=== PATIENT | female | born 1950 | race Caucasian/White ===

== ENCOUNTER 2022-05-06 07:52 | Day surgery (SDC) | payer MEDICARE ==
[~2022-05-06 07:52] MED LIST: Propofol 200 MG/20 ML SDV ONE; fentaNYL 50 MCG/ML SDV ONE
[2022-05-06] MEDS ORDERED: Lactated Ringers 1,000 ML IV SCH (08:30)
== END 2022-05-06 11:05 | disposition home or self-care (01) ==
LOC: JP.SDS 07:52
PROVIDERS: ATTEND Family Medicine
DX: Z12.11 Encounter for screening for malignant neoplasm of colon (principal); I48.91 Unspecified atrial fibrillation; Z87.820 Personal history of traumatic brain injury; R56.9 Unspecified convulsions; Z79.899 Other long term (current) drug therapy
CPT/HCPCS: G0121; J2704; J3010; J7120

== ENCOUNTER 2022-05-11 14:09 | Emergency (ER) | payer MEDICARE ==
[2022-05-11] MEDS ORDERED: fentaNYL 100 MCG/2 ML SDV IM ONE (14:31)
== END 2022-05-11 15:44 | disposition home or self-care (01) ==
LOC: JP.ED 14:09
DX: S52.125A Nondisplaced fracture of head of left radius, initial encounter for closed fracture (principal); W00.0XXA Fall on same level due to ice and snow, initial encounter
CPT/HCPCS: 29125; 73110; 96372; 99283; J3010

== ENCOUNTER 2022-05-19 05:42 | Day surgery (SDC) | payer MEDICARE ==
[2022-05-19] MEDS ORDERED: Sodium Chloride 0.9% 1,000 ML IV SCH (06:30)
[2022-05-19 06:33] LABS: ESTIMATED GFR 68 mL/min (>60)
[2022-05-19] MEDS ORDERED: Bupivacaine 0.5% 30 ML SDV ONE (06:35)
[2022-05-19] MEDS ORDERED: Nozin Nasal Sanitizer NASBOTH ONE (07:00)
[2022-05-19] MEDS ORDERED: Neostigmine Methylsulfate 1 MG/ML 5 ML Syringe ONE (07:08)
[2022-05-19] MEDS ORDERED: Dexamethasone 4 MG/ML SDV ONE (07:08)
[2022-05-19] MEDS ORDERED: Glycopyrrolate 0.2 MG/ML 5 ML MDV ONE (07:08)
[2022-05-19] MEDS ORDERED: Succinylcholine 200 MG/10 ML MDV ONE (07:08)
[2022-05-19] MEDS ORDERED: Rocuronium 50 MG/5 ML Vial ONE (07:08)
[2022-05-19] MEDS ORDERED: Propofol 200 MG/20 ML SDV ONE (07:08)
[2022-05-19] MEDS ORDERED: Ondansetron 4 MG/2 ML SDV ONE (07:08)
[2022-05-19] MEDS ORDERED: fentaNYL 250 MCG/5 ML SDV ONE (07:10)
[2022-05-19] MEDS ORDERED: ceFAZolin 1 GM in Premix Bag 1 BAG IV ONE (07:30)
[2022-05-19] MEDS ORDERED: Acetaminophen/HYDROcodone 325-5 MG Tab PO PRN (10:17)
== END 2022-05-19 11:27 | disposition home or self-care (01) ==
LOC: JP.SDS 05:42
PROVIDERS: ATTEND Specialist
DX: S52.532A Colles' fracture of left radius, initial encounter for closed fracture (principal); W19.XXXA Unspecified fall, initial encounter
CPT/HCPCS: 25607; 36415; 76000; 80053; 85027; 85610; 93005; A9270; C1713; J0330; J0690; J1100; J2405; J2704; J2710; J3010; J3490; J7030